=== PATIENT | male | born 1950 | race Caucasian/White ===

== ENCOUNTER → 2018-02-13 | Outpatient (CLI) | payer MEDICARE ==
[2018-02-13 11:17] LABS: Calcium 9.4 mg/dL (8.4-10.2); Potassium 4.1 mmol/L (3.5-5.1)
[2018-02-13 11:31] LABS: Basophils % (A) 1 %; Eosinophils # (A) 0.2 k/uL (0-0.7); Eosinophils % (A) 4 %; HCT 46.5 % (39.0-53.0); HGB 15.9 gm/dL (13.0-17.5); Lymphocytes % (A) 20 %; MCH 31.4 pg (25.0-35.0); MCHC 34.3 g/dL (31.0-37.0); MCV 91.6 fL (80.0-100.0); Mean Platelet Volume 6.5; Monocytes # (A) 0.4 k/uL (0-1.0); Monocytes % (A) 7 %; Neutrophils # (A) 3.4 k/uL (1.3-7.7); Neutrophils % (A) 67 %; Platelet Count 157 k/uL (150-450); RBC 5.07 m/uL (4.30-5.90); RDW 13.8 % (11.5-15.5); WBC 5.1 k/uL (3.8-10.6)
== END | disposition home or self-care (01) ==
LOC: LABPAT 10:24
PROVIDERS: ATTEND Urology
DX: Z01.812 Encounter for preprocedural laboratory examination (principal); N40.1 Benign prostatic hyperplasia with lower urinary tract symptoms; N13.8 Other obstructive and reflux uropathy; I10 Essential (primary) hypertension; E11.9 Type 2 diabetes mellitus without complications; E78.00 Pure hypercholesterolemia, unspecified; R35.0 Frequency of micturition; R31.0 Gross hematuria
CPT/HCPCS: 80048; 85025; 87086; 93005

== ENCOUNTER 2018-02-21 06:54 | Observation (INO) | payer MEDICARE ==
[2018-02-12 14:56] VITALS: BMI 32.3
[~2018-02-21 06:54] MED LIST: DEXAMETHASONE SOD PHOSPHATE 10 MG/ML 1 ML VIAL IV ONE; ONDANSETRON 4 MG/2 ML VIAL IVP ONE
[2018-02-21] MEDS: LACTATED RINGERS 1,000 ML IV SCH (08:17)
[2018-02-21] MEDS ORDERED: MIDAZOLAM 2 MG/2 ML VIAL ONE ×2 (08:23→08:35)
[2018-02-21 08:26] LABS: Glucose,Whole Blood 109 mg/dL (75-99)
[2018-02-21] MEDS ORDERED: HYDROmorphone (PF) 1 MG/ML ONE (08:35)
[2018-02-21] MEDS ORDERED: ePHEDrine SULFATE/0.9% NACL/PF 50 MG/5 ML SYRINGE IV ONE (08:35)
[2018-02-21] MEDS ORDERED: PHENYLEPHRINE-0.9% NACL SYG 1 MG/10 ML SYRINGE ONE (08:35)
[2018-02-21] MEDS ORDERED: LIDOCAINE 1% INJ 10MG/ML (20 ML MDV) ONE (08:35)
[2018-02-21] MEDS ORDERED: SUCCINYLCHOLINE CHLORIDE 100 MG/5 ML SYR IV ONE (08:35)
[2018-02-21] MEDS ORDERED: fentaNYL (PF) 50 MCG/ML 2 ML AMP ONE (08:35)
[2018-02-21] MEDS ORDERED: ROCURONIUM BROMIDE 10 MG/ML 10 ML VIAL IV ONE (08:35)
--- NOTE | 2018-02-21 11:00 | P.OP ---
Date of Procedure: 02/21/18 Preoperative Diagnosis: BPH with Obstruction Postoperative Diagnosis: Same Procedure(s) Performed: Cystoscopy, Bipolar Transurethral Resection of Prostate (TURP) Anesthesia: FRANKLIN Surgeon: Sukhwinder Ling Estimated Blood Loss (ml): 100 IV fluids (ml): 800 Pathology: other (Prostate chips) Condition: stable Disposition: PACU Indications for Procedure: He is a 68-year-old male with BPH. His PSA level has been persistently elevated , and was most recently 10.7. He reports BPH symptoms, which are not adequately controlled with Hytrin. He discontinued finasteride due to sexual side effects, and he currently reports retrograde ejaculation. AMANDA reveals the prostate to be moderately enlarged but smooth. Prostate biopsies in 2008 and 2012 were negative , as was a ConfirmMDX study. Prostate MRI showed no suspicious lesions, and he has elected not to undergo repeat biopsies as he experienced significant pain with the biopsies. I have reviewed alternative BPH treatment options with him, and he has elected to undergo a TURP Operative Findings: Trilobar BPH, completely obstructing. Description of Procedure: The patient was taken in the operating room and placed in the dorsolithotomy position, The external genitalia was prepped and draped sterilely. The 25- Wolof [employer] resectoscope sheath was introduced into the bladder. The bladder was inspected. Both ureteral orifices were of normal anatomic location and configuration, and clear urine effluxed from both. No tumors or foreign bodies were seen. Examination of the prostate revealed complete obstruction with a trilobar configuration. Using the bipolar cutting loop, the median lobe was resected. The resection involved a portion of the trigone in the midline. The lateral lobes were resected down to the surgical capsule. The floor of the prostate was then resected, proximal to the verumontanum. Lastly, any remaining anterior tissue was resected. The prostatic fossa was then carefully examined. The remaining apical tissue was then carefully resected. The resection was carried down to the surgical capsule in all 4 quadrants. The prostatic fossa was then carefully examined, and any areas of bleeding were controlled with electrocautery. Some oozing was noted, though there were no arterial bleeders. Adequate hemostasis was attained. The resectoscope was withdrawn into the bulbous urethra. The external urinary sphincter remained intact. The prostatic fossa was open. The [employer] evacuator was used to remove all prostate chips from the bladder. These were saved and sent for pathologic examination. The resectoscope was removed, and a 22 Wolof, 3-Way High catheter was placed. The return was essentially clear. Continuous bladder irrigation was started using 0.9 normal saline. The patient tolerated the procedure well was taken to the recovery room in stable condition.
[2018-02-21] MEDS ORDERED: ACETAMINOPHEN TAB 325 MG TAB PO PRN (11:01)
[2018-02-21] MEDS ORDERED: MAG HYDROX/AL HYDROX/SIMETH 30 ML CUP PO PRN (11:01)
[2018-02-21] MEDS: HYDROmorphone 0.5 MG/0.5 ML SYRINGE IVP PRN ×4 (11:03→11:43)
[2018-02-21] MEDS ORDERED: HYDROcodone/APAP 5-325MG 1 EACH TAB PO PRN (11:03)
[2018-02-21 11:23] LABS: Glucose,Whole Blood 125 mg/dL (75-99)
[2018-02-21] MEDS ORDERED: HYDROmorphone 0.5 MG/0.5 ML SYRINGE IVP PRN (12:29)
[2018-02-21] MEDS: DEXTROSE 5%-0.45% NACL 1,000 ML IV SCH (12:32)
[2018-02-21] MEDS: KETOROLAC 30 MG/ML 1 ML VIAL IVP PRN ×2 (12:44→18:44)
[2018-02-21] MEDS: SODIUM CHLORIDE 0.9% IRRIG 3,000 ML BAG IRRIGATION SCH ×3 (15:41→22:35)
[2018-02-21 16:59] LABS: Glucose,Whole Blood 126 mg/dL (75-99)
[2018-02-21 20:38] VITALS: RESP 16
[2018-02-21] MEDS: DOCUSATE 100 MG CAP PO SCH (21:21)
[2018-02-21] MEDS: FAMOTIDINE 20 MG TAB PO SCH (21:21)
[2018-02-21] MEDS: BELLADONNA-OPIUM 16.2-60 MG 1 EACH SUPP RECTAL PRN (21:21)
[2018-02-21] MEDS: PRAVASTATIN SODIUM 20 MG TAB PO SCH (21:21)
[2018-02-21 21:46] LABS: Glucose,Whole Blood 159 mg/dL (75-99)
[2018-02-22] MEDS: DEXTROSE 5%-0.45% NACL 1,000 ML IV SCH ×2 (00:37→15:36)
[2018-02-22] MEDS: KETOROLAC 30 MG/ML 1 ML VIAL IVP PRN ×4 (02:23→21:01)
[2018-02-22] MEDS ORDERED: ceFAZolin IN SWFI 2 GM/20 ML SYRINGE IVP ONE (06:00)
[2018-02-22] MEDS: BELLADONNA-OPIUM 16.2-60 MG 1 EACH SUPP RECTAL PRN (06:34)
[2018-02-22 07:06] LABS: Glucose,Whole Blood 107 mg/dL (75-99)
[2018-02-22] MEDS: LACTATED RINGERS 1,000 ML IV SCH (07:17)
[2018-02-22] MEDS: buPROPion SR 150 MG TABLET.ER PO SCH (08:29)
[2018-02-22] MEDS: DOXAZOSIN 4 MG TAB PO SCH (08:29)
[2018-02-22] MEDS: DOCUSATE 100 MG CAP PO SCH ×2 (08:29→21:02)
[2018-02-22] MEDS: metFORMIN 500 MG TAB PO SCH (08:29)
[2018-02-22] MEDS: HYDROCHLOROTHIAZIDE 12.5 MG CAP PO SCH (08:29)
[2018-02-22] MEDS: HYDROcodone/APAP 5-325MG 1 EACH TAB PO PRN ×3 (10:07→22:17)
[2018-02-22 11:03] LABS: Glucose,Whole Blood 111 mg/dL (75-99)
[2018-02-22] MEDS: MULTIVITAMINS, THERA 1 EACH TAB PO SCH (11:48)
--- NOTE | 2018-02-22 16:35 | P.PN ---
Subjective Progress Note Date: 02/22/18 Principal diagnosis: POD #1, s/p TURP. Mr. Cedeño underwent an uncomplicated bipolar TURP yesterday. He reports considerable pain at the urethral meatus. The High catheter is draining faintly bloody urine. Objective - Vital Signs Vital signs: Vital Signs Temp 98.5 F 02/22/18 15:15 Pulse 81 02/22/18 15:15 Resp 16 02/22/18 15:15 BP 120/75 02/22/18 15:15 Pulse Ox 95 02/22/18 15:15 Intake & Output 02/21/18 02/22/18 02/22/18 18:59 06:59 18:59 Intake Total 6010 291 7941 Output Total 6925 6800 2125 Balance -6537 -0717 -1125 Weight 90.718 kg Intake: IV 1300 Intake, IV Titration 160 Amount Dextrose 5%-0.45% NaCl 1, 160 000 ml @ 75 mls/hr IV . [id number] QI Rx#:[id number] Oral 1000 Output: Urine 6825 6800 2125 Uretheral (High) 925 4600 2125 Estimated Blood Loss 100 Other: Voiding Method Indwelling Catheter Indwelling Catheter Indwelling Catheter # Voids 1 2 - Constitutional General appearance: Present: no acute distress - Gastrointestinal General gastrointestinal: Present: soft. Absent: distended, tenderness - Psychiatric Psychiatric: Present: A&O x's 3, appropriate affect - Labs Labs: Abnormal Lab Results - Last 24 Hours (Table) 02/21/18 02/21/18 02/22/18 Range/Units 16:44 21:43 07:04 POC Glucose (mg/dL) 126 H 159 H 107 H (75-99) mg/dL 02/22/18 Range/Units 11:01 POC Glucose (mg/dL) 111 H (75-99) mg/dL Assessment and Plan Plan: Mr. Cedeño's condition is stable. However, I am not confident that he can be discharged with his High catheter as a result of his pain. He will therefore remained hospitalized, and the High catheter will likely be removed on February 24 for a voiding trial.
[2018-02-22 17:16] LABS: Glucose,Whole Blood 85 mg/dL (75-99)
[2018-02-22 20:20] LABS: Glucose,Whole Blood 120 mg/dL (75-99)
[2018-02-22] MEDS: FAMOTIDINE 20 MG TAB PO SCH (21:02)
[2018-02-22] MEDS: PRAVASTATIN SODIUM 20 MG TAB PO SCH (21:02)
[2018-02-23] MEDS: KETOROLAC 30 MG/ML 1 ML VIAL IVP PRN ×2 (03:36→09:39)
[2018-02-23] MEDS: DEXTROSE 5%-0.45% NACL 1,000 ML IV SCH (03:56)
[2018-02-23] MEDS: LACTATED RINGERS 1,000 ML IV SCH (05:44)
[2018-02-23] MEDS: HYDROcodone/APAP 5-325MG 1 EACH TAB PO PRN ×2 (06:57→11:13)
[2018-02-23 07:11] LABS: Glucose,Whole Blood 118 mg/dL (75-99)
[2018-02-23 07:52] VITALS: BP 159/81; PULSE 57; TEMP 98
[2018-02-23] MEDS: DOCUSATE 100 MG CAP PO SCH (08:09)
[2018-02-23] MEDS: metFORMIN 500 MG TAB PO SCH (08:09)
[2018-02-23] MEDS: buPROPion SR 150 MG TABLET.ER PO SCH (08:10)
[2018-02-23] MEDS: DOXAZOSIN 4 MG TAB PO SCH (08:10)
[2018-02-23] MEDS: HYDROCHLOROTHIAZIDE 12.5 MG CAP PO SCH (08:11)
[2018-02-23 11:41] LABS: Glucose,Whole Blood 158 mg/dL (75-99)
--- NOTE | 2018-02-23 13:03 | P.DS ---
Providers Date of admission: 02/21/18 06:54 Expected date of discharge: 02/23/18 Attending physician: Sukhwinder Ling Primary care physician: Gutier[facility] Course: On the day of admission, the patient underwent an uncomplicated bipolar TURP. He was afebrile with stable vital signs throughout the postoperative course. However, on the evening of surgery and the first postoperative day he reported significant pain at the tip of the penis. He noted that this was positional, depending on the angle of the catheter, and with attention paid to this it was much more tolerable for him. On the second postoperative day, the urine was clear and continuous bladder irrigation was discontinued. Arrangements were made for him to be discharged home with the catheter. Procedures: Cysto, TURP on 02/21/2018. Patient Condition at Discharge: Good Plan - Discharge Summary Discharge Rx Participant: No New Discharge Prescriptions: New Hydrocodone/Acetaminophen [[place] 5-325] 1 - 2 each PO Q4HR PRN #15 tab PRN Reason: Pain Ketorolac [Toradol] 10 mg PO Q6HR #15 tab No Action HYDROcodone/APAP 5-325MG [[place] 5-325] 1 tab PO DAILY PRN PRN Reason: Pain traMADol HCl [Ultram] 50 mg PO DAILY PRN PRN Reason: Pain metFORMIN HCL [Glucophage] 500 mg PO DAILY Multivitamins, Thera [Multivitamin (formulary)] 1 tab PO DAILY Diclofenac Sodium [Voltaren] 75 mg PO Q48H Aspirin [Adult Low Dose Aspirin EC] 81 mg PO HS Terazosin [Hytrin] 5 mg PO BID Ranitidine HCl [Zantac] 150 mg PO HS Pravastatin Sodium [Pravachol] 20 mg PO HS Hydrochlorothiazide [Hydrochlorothiazide] 12.5 mg PO DAILY buPROPion HCL [Wellbutrin Sr] 150 mg PO DAILY Prostavar 500 mg PO BID Fiber Caps 4 cap PO DAILY Discharge Medication List Aspirin [Adult Low Dose Aspirin EC] 81 mg PO HS 02/12/18 [History] Diclofenac Sodium [Voltaren] 75 mg PO Q48H 02/12/18 [History] Fiber Caps 4 cap PO DAILY 02/12/18 [History] HYDROcodone/APAP 5-325MG [[place] 5-325] 1 tab PO DAILY PRN 02/12/18 [History] Hydrochlorothiazide [Hydrochlorothiazide] 12.5 mg PO DAILY 02/12/18 [History] Multivitamins, Thera [Multivitamin (formulary)] 1 tab PO DAILY 02/12/18 [History ] Pravastatin Sodium [Pravachol] 20 mg PO HS 02/12/18 [History] Prostavar 500 mg PO BID 02/12/18 [History] Ranitidine HCl [Zantac] 150 mg PO HS 02/12/18 [History] Terazosin [Hytrin] 5 mg PO BID 02/12/18 [History] buPROPion HCL [Wellbutrin Sr] 150 mg PO DAILY 02/12/18 [History] metFORMIN HCL [Glucophage] 500 mg PO DAILY 02/12/18 [History] traMADol HCl [Ultram] 50 mg PO DAILY PRN 02/12/18 [History] Hydrocodone/Acetaminophen [[place] 5-325] 1 - 2 each PO Q4HR PRN #15 tab 02/23/18 [Rx] Ketorolac [Toradol] 10 mg PO Q6HR #15 tab 02/23/18 [Rx] Follow up Appointment(s)/Referral(s): Sukhwinder Ling MD [STAFF PHYSICIAN] - 02/26/18 8:00 am Activity/Diet/Wound Care/Special Instructions: Discharge home with High catheter. Drink plenty of fluids. Diet as tolerated. No lifting or straining. Discharge Disposition: HOME SELF-CARE
[2018-02-23] MEDS: MULTIVITAMINS, THERA 1 EACH TAB PO SCH (15:00)
== END 2018-02-23 15:15 | disposition home or self-care (01) ==
LOC: 2ORMAIN 06:54 → INTOOBSV 06:54 → 3SUR 10:52
PROVIDERS: ADMIT Urology; ATTEND Urology
DX: N40.1 Benign prostatic hyperplasia with lower urinary tract symptoms (principal); N13.8 Other obstructive and reflux uropathy; R97.20 Elevated prostate specific antigen [PSA]; N53.14 Retrograde ejaculation; I10 Essential (primary) hypertension; E11.9 Type 2 diabetes mellitus without complications; E78.00 Pure hypercholesterolemia, unspecified; K21.9 Gastro-esophageal reflux disease without esophagitis; N52.9 Male erectile dysfunction, unspecified; M19.90 Unspecified osteoarthritis, unspecified site; M51.9 Unspecified thoracic, thoracolumbar and lumbosacral intervertebral disc disorder; R25.1 Tremor, unspecified; F41.9 Anxiety disorder, unspecified; F32.9 Major depressive disorder, single episode, unspecified; Z86.2 Personal history of diseases of the blood and blood-forming organs and certain disorders involving the immune mechanism; Z79.84 Long term (current) use of oral hypoglycemic drugs; Z79.82 Long term (current) use of aspirin; Z79.899 Other long term (current) drug therapy; Z82.49 Family history of ischemic heart disease and other diseases of the circulatory system; Z83.6 Family history of other diseases of the respiratory system; Z80.1 Family history of malignant neoplasm of trachea, bronchus and lung; Z80.0 Family history of malignant neoplasm of digestive organs; Z80.8 Family history of malignant neoplasm of other organs or systems
CPT/HCPCS: 88305; 52601; G0379; G0378 ×4; J2250; S0106 ×2; J2405; J2001; J3010; J1885 ×3; J1170 ×2; J2370; J0330; J0690

== ENCOUNTER → 2021-05-26 | Outpatient (CLI) | payer MEDICARE | END | disposition home or self-care (01) | LOC: LABWHC1 10:23 | PROVIDERS: ATTEND Urology | DX: R97.20 Elevated prostate specific antigen [PSA] (principal) | CPT/HCPCS: 36415; 84153 ==

== ENCOUNTER 2023-04-27 06:42 | Day surgery (SDC) | payer MEDICARE ==
[2023-04-20 12:53] VITALS: BMI 31.3
[2023-04-27 07:21] LABS: Glucose,Whole Blood 145 mg/dL (70-110)
[2023-04-27] MEDS ORDERED: SODIUM CHLORIDE 0.9% 500 ML 500 ML IV ONE (07:38)
[2023-04-27 07:42] VITALS: TEMP 98
[2023-04-27] MEDS ORDERED: fentaNYL (PF) 50 MCG/ML 2 ML AMP ONE (07:57)
[2023-04-27] MEDS ORDERED: fentaNYL (PF) 50 MCG/ML 2 ML AMP IVP ONE (08:30)
[2023-04-27] MEDS ORDERED: MIDAZOLAM 2 MG/2 ML VIAL IVP ONE (08:30)
[2023-04-27] MEDS ORDERED: BENZOCAINE SPRAY 1 CAN MUCOUS MEM ONE (08:30)
[2023-04-27 09:34] VITALS: BP 148/65; PULSE 63; RESP 16
--- NOTE | 2023-04-27 13:02 | ECHOT ---
TRANSESOPHAGEAL ECHOCARDIOGRAM INDICATIONS: TIA, rule out cardiac source of thromboembolic phenomenon. PROCEDURE NOTE: After obtaining informed consent, transesophageal echocardiogram is performed in left lateral position using an Omniplane probe. Local and IV sedation were obtained using Xylocaine spray, Versed and fentanyl. The patient tolerated the procedure well without any obvious immediate complications. The patient received moderate conscious sedation. Total sedation time was 10 minutes. FINDINGS: 1. Interatrial septum: There is no evidence of [id number] shunt by color-flow Doppler or [id number] shunt by agitated saline contrast study. There is lipomatosis hypertrophy of the interatrial septum. 2. Left atrium, right atrium, right ventricle seen within normal limits. 3. There is no intracardiac thrombus within the left atrial appendage, left atrium, right atrium, right ventricle, left ventricle. 4. Mitral valve appears anatomically normal. There is mild mitral regurgitation noted. 5. Aortic valve is a 3-leaflet valve. There is no evidence of aortic stenosis or regurgitation. 6. Aortic root measures within normal limits. There is mild tricuspid regurgitation. CONCLUSIONS: Normal LV function. No intracardiac thrombus. No evidence of shunting across the interatrial septum. MMODL / IJN: [id number] /
== END 2023-04-27 09:48 | disposition home or self-care (01) ==
LOC: CATHCVL 06:42
PROVIDERS: ATTEND Internal Medicine Cardiovascular Disease
DX: G45.9 Transient cerebral ischemic attack, unspecified (principal); I10 Essential (primary) hypertension; E78.5 Hyperlipidemia, unspecified; I73.9 Peripheral vascular disease, unspecified; Z98.890 Other specified postprocedural states; Z79.82 Long term (current) use of aspirin; Z79.899 Other long term (current) drug therapy
CPT/HCPCS: 93312; 93320; 93325; J2250; J3010